=== PATIENT | male | born 1945 | race Caucasian/White ===

== ENCOUNTER 2023-12-06 15:52 | Emergency (ER) | payer MEDICARE, MEDICAID ==
[~2023-12-06] VITALS: Ht 182.9 cm; Wt 74.5 kg
[~2023-12-06 15:52] MED LIST: ACYC-1 PO; BACL10TA PO; CALC600T26 PO; CEPH-585 PO; CHOL200012 PO; OXYC-752 PO; RIFA550T PO; ZINC220T3 PO
[2023-12-06] MEDS: ketorolac trometh. 30mg/ml inj. IM ONE (21:39)
[2023-12-06] MEDS: ketorolac tromethamine 15mg/ml inj. IM ONE ×2 (21:40→21:49)
[2023-12-06 22:20] LABS: BILIRUBIN,URINE NEGATIVE (Neg); CLARITY,URINE CLEAR (Clear); GLUCOSE, URINE NEGATIVE (Neg); KETONES,URINE NEGATIVE (Neg); LEUKOCYTE ESTERASE ,URINE NEGATIVE (Neg); NITRITES, URINE NEGATIVE (Neg); OCCULT BLOOD,URINE TRACE-INTACT (Neg); PROTEIN,URINE NEGATIVE (Neg)
[2023-12-06 22:25] LABS: COLOR,URINE DARK YELLOW (Yellow); UA COLLECTION TYPE URINAL
[2023-12-06 22:27] LABS: BACTERIA,URINE NONE SEEN /HPF (Neg); MUCUS STRANDS NONE SEEN /LPF (Neg); SQUAMOUS EPITHELIAL CELL,UR NONE SEEN /LPF (FEW); WBC,URINE 0-4 /HPF (0-4)
[2023-12-06 22:56] VITALS: BP 178/64; PULSE 69; RESP 16; TEMP 98.7; O2SAT 98
== END 2023-12-06 22:58 | disposition home or self-care (01) ==
LOC: ER 15:53
DX: S82.892A Other fracture of left lower leg, initial encounter for closed fracture (principal); M25.512 Pain in left shoulder; M25.562 Pain in left knee; M25.552 Pain in left hip; Z79.899 Other long term (current) drug therapy; W18.30XA Fall on same level, unspecified, initial encounter; Y93.89 Activity, other specified; Y92.89 Other specified places as the place of occurrence of the external cause; Y99.8 Other external cause status
CPT/HCPCS: 72100; 73030; 73060; 73502; 81001; 96372; 99284; J1885